=== PATIENT | male | born 1970 | race African-American/Black ===

== ENCOUNTER 2016-12-02 10:16 | Emergency (ER) | payer OTHER ==
[~2016-12-02] VITALS: Ht 175.3 cm; Wt 104.3 kg
[2016-12-02] MEDS ORDERED: TOBRADEX EYE DRO5 ML OP (11:44)
[2016-12-02] MEDS ORDERED: TOBRAMYCIN SULFA5 M1 OP (11:46)
[2016-12-02 12:10] VITALS: BP 104/69
== END 2016-12-02 12:19 | disposition home or self-care (01) ==
LOC: ER 10:16
DX: H10.31 Unspecified acute conjunctivitis, right eye (principal)